=== PATIENT | male | born 1970 | race Caucasian/White ===

== ENCOUNTER 2017-10-10 12:29 | Emergency (ER) | payer OTHER | END 2017-10-10 13:55 | disposition home or self-care (01) | LOC: FER 12:29 | CPT/HCPCS: 73030-TC-RT-FY; 99282-25 ==

== ENCOUNTER 2018-02-24 00:46 | Emergency (ER) | payer SELFPAY ==
--- NOTE | 2018-02-24 00:50 | PDOC ---
History of Present Illness - General Chief Complaint: Foreign Body (FB) Stated Complaint: FB R EAR Time Seen by Provider: 02/24/18 00:48 - History of Present Illness Initial Comments: 02/24/18 01:05 This 47-year-old man with a history of ischemic CVA 5 years ago (no neurologic sequela) but no other significant past history presents with foreign body in the right ear. Patient states that approximately 2 hours prior to arrival in the ER, as patient was retiring and taking lights out in his home, he felt insect fly into his right ear. Since then, the insect continues to flutter and the patient has been unable to remove the insect. No other complaints. Past History - Past Medical History Allergies/Adverse Reactions: Allergies Allergy/AdvReac Type Severity Reaction Status Date / Time No Known Allergies Allergy Verified 10/10/17 12:35 Home Medications: Ambulatory Orders Aspirin [ASA -] 81 mg PO DAILY 10/10/17 Loratadine [Claritin] 10 mg PO DAILY 10/10/17 CVA: Yes (ISCHEMIC STROKE 5 YEARS AGO) COPD: No - Suicide/Smoking/Psychosocial Hx Smoking History: Never smoked Hx Alcohol Use: Yes (OCCASIONAL) Drug/Substance Use Hx: No Substance Use Type: None Review of Systems - Review of Systems Able to Perform ROS?: Yes Comments:: 12 point review of systems is negative except for what is noted in the history of present illness *Physical Exam - Physical Exam Comments: GENERAL: Adult male, alert and oriented times 3 in no acute distress HEAD: Normal with no signs of trauma. EYES: PERRLA, EOMI, sclera anicteric, conjunctiva clear. ENT: nares patent, oropharynx clear without exudates. Moist mucous membranes. Right earinsect visualized easily in the external auditory canal; left ear without abnormality NECK: Normal range of motion, supple without lymphadenopathy, JVD, or masses. SKIN: Warm, Dry, normal turgor, no rashes or lesions noted. Medical Decision Making - Medical Decision Making While patient was being evaluated, insect (firefly) spontaneously crawled out of patient's right external auditory canal, likely secondary to the bright lights in examining room. Insect was contained. EAC and tympanic membrane reexamined: Minimal erythema of canal noted. No lacerations/abrasion or other foreign body noted. Tympanic membrane appears normal. Because of the erythema of the canal and length of time that insect was in contact with the canal, Corticosporin otic suspension drops (4) replaced in the ear. Patient will continue this dosage 3 times a day for 5 days. The patient will return to the emergency room or see his doctor if ear pain/discharge from the ear develops. *DC/Admit/Observation/Transfer Diagnosis at time of Disposition: Foreign body of ear, right Qualifiers: Encounter type: initial encounter Qualified Code(s): T16.1XXA - Foreign body in right ear, initial encounter - Discharge Dispostion Disposition: HOME Condition at time of disposition: Stable - Referrals - Patient Instructions Printed Discharge Instructions: DI for Removal of Foreign Body From Ear Additional Instructions: Cortisporin otic suspension: 4 drops in right ear 3 times a day for 5 days Return to ER or see your doctor if you have pain in ear or discharge from the ear - Post Discharge Activity
[2018-02-24 00:52] VITALS: BP 150/90; PULSE 80; TEMP 97.4; BMI 27.1
[2018-02-24] MEDS ORDERED: NEOMYCIN/POLYMYXN/HC OTIC SUSPENSION 10 ML BOTTLE ONE (00:53)
== END 2018-02-24 00:59 | disposition home or self-care (01) ==
LOC: FER 00:46
DX: T16.1XXA Foreign body in right ear, initial encounter (principal); X58.XXXA Exposure to other specified factors, initial encounter; Y93.89 Activity, other specified; Y92.009 Unspecified place in unspecified non-institutional (private) residence as the place of occurrence of the external cause; I63.8 Other cerebral infarction
CPT/HCPCS: 99282-25

== ENCOUNTER 2022-10-15 21:58 | Emergency (ER) | payer OTHER ==
[2022-10-15 22:11] VITALS: BP 150/97; PULSE 84; RESP 16; TEMP 98.3; BMI 29.0
[2022-10-15] MEDS ORDERED: SODIUM CHLORIDE 1,000 ML IV ONE (22:22)
[2022-10-15] MEDS ORDERED: KETOROLAC TROMETHAMINE 30 MG/1 ML VIAL IVPUSH ONE (22:22)
[2022-10-15] MEDS ORDERED: ONDANSETRON 4 MG/2 ML VIAL IVPUSH ONE (22:22)
[2022-10-15] MEDS ORDERED: KETOROLAC TROMETHAMINE 30 MG/1 ML VIAL ONE (22:24)
[2022-10-15] MEDS ORDERED: ONDANSETRON 4 MG/2 ML VIAL ONE (22:24)
[2022-10-15 22:40] LABS: HEMATOCRIT 44.6 % (35.4-49); HEMOGLOBIN 15.5 G/dL (11.7-16.9); MCH 32.5 pg (25.7-33.7); MCHC 34.8 g/dl (32.0-35.9); MEAN CELL VOLUME 93.3 fl (80-96); MEAN PLT VOLUME 7.3 fl (7.5-11.1); RBC 4.78 10^6/uL (4.00-5.60); RDW 13.2 % (11.9-15.9); WHITE BLOOD COUNT 9.5 10^3/uL (4.0-10.8)
[2022-10-15 22:51] LABS: ALBUMIN 4.4 g/dl (3.4-5.0); BILIRUBIN,TOTAL 0.6 mg/dl (0.2-1); CALCIUM 9.4 mg/dl (8.5-10); CREATININE 1.3 mg/dl (0.55-1.3); POTASSIUM 3.6 mmol/L (3.5-5.1); TOT PROT 7.7 g/dl (6.4-8.2)
== END 2022-10-16 04:24 | disposition home or self-care (01) ==
LOC: FER 21:58
PROC: 3E0333Z Introduction of Anti-inflammatory into Peripheral Vein, Percutaneous Approach (ICD-10-PCS; principal; 2022-10-15)
PROC: 3E033GC Introduction of Other Therapeutic Substance into Peripheral Vein, Percutaneous Approach (ICD-10-PCS; 2022-10-15)
PROC: 3E0337Z Introduction of Electrolytic and Water Balance Substance into Peripheral Vein, Percutaneous Approach (ICD-10-PCS; 2022-10-15)
DX: N20.0 Calculus of kidney (principal); R10.31 Right lower quadrant pain
CPT/HCPCS: 36415; 74176-TC; 80053; 81003; 81015; 85027; 87086; 99284-25